=== PATIENT | male | born 1990 | race Caucasian/White ===

== ENCOUNTER 2020-06-24 18:27 | Emergency (ER) | payer BC ==
[~2020-06-24] VITALS: Ht 182.9 cm; Wt 124.3 kg
[2020-06-24 18:44] VITALS: BP 122/77
--- NOTE | 2020-06-24 18:47 | NUR ---
Patient ambulated to lobby with steady gait
--- NOTE | 2020-06-24 19:47 | NUR ---
PT TAKEN TO CHAIR A FOR MSE
[2020-06-24] MEDS ORDERED: KETOROLAC 30 MG/ML VIAL IM ONE (19:50)
[2020-06-24 20:05] VITALS: BP 122/77
== END 2020-06-24 20:25 | disposition home or self-care (01) ==
LOC: MED 18:27
DX: S30.0XXA Contusion of lower back and pelvis, initial encounter (principal); F17.210 Nicotine dependence, cigarettes, uncomplicated; W01.0XXA Fall on same level from slipping, tripping and stumbling without subsequent striking against object, initial encounter; Y93.E1 Activity, personal bathing and showering; Y92.89 Other specified places as the place of occurrence of the external cause; Y99.8 Other external cause status
CPT/HCPCS: 72110; 96372; 99283; J1885